=== PATIENT | female | born 1965 | race Caucasian/White ===

== ENCOUNTER 2016-12-20 15:47 | Emergency (ER) | payer BC ==
[2016-12-20 16:27] VITALS: BP 108/54
--- NOTE | 2016-12-20 16:36 | UC ---
Skin Complaint HPI - HPI Summary HPI Summary: Pt presents with c/o of abrasion to the top of right foot s/p cook pressure falling on top of right foot. Pt states that skin has become increasingly red and tender over the last 7 days with small amount of clear/yellow drainage - History of Current Complaint Chief Complaint: UCSkin Time Seen by Provider: 12/20/16 16:22 Stated Complaint: RIGHT FOOT COMPLAINT Hx Obtained From: Patient Hx Last Menstrual Period: "last month sometime." ?: No Onset/Duration: Gradual Onset, Lasting Days - 7 Skin Exposure Onset/Duration: Days Ago - 7 Timing: Constant Onset Severity: Mild Current Severity: Mild Location: Discrete - right top of foot Character: Redness, Painful Aggravating: Touch Associated Signs & Symptoms: Positive: Drainage, Tenderness - Allergy/Home Medications Allergies/Adverse Reactions: Allergies Allergy/AdvReac Type Severity Reaction Status Date / Time No Known Allergies Allergy Verified 12/20/16 16:27 Home Medications: Home Medications Ibuprofen TAB* [Advil TAB*] 200 mg PO Q6H PRN 12/20/16 [History Confirmed ] Review of Systems Constitutional: Negative Skin: Other - eryhtematous, peeling skin~ 3 cm diameter, scant amount erous drainage Eyes: Negative ENT: Negative Respiratory: Negative Cardiovascular: Negative Gastrointestinal: Negative Genitourinary: Negative Motor: Negative Neurovascular: Negative Musculoskeletal: Negative Neurological: Negative Psychological: Negative All Other Systems Reviewed And Are Negative: Yes PMH/Surg Hx/FS Hx/Imm Hx Previously Healthy: Yes - Surgical History Surgical History: Yes Surgery Procedure, Year, and Place: Tubal Ligation, 1991, [facility] - Family History Known Family History: Positive: Cardiac Disease - Social History Alcohol Use: Occasionally Substance Use Type: None Smoking Status (MU): Current Every Day Smoker Type: Cigarettes Amount Used/How Often: 1 PPD Have You Smoked in the Last Year: Yes When Did the Patient Quit Smoking/Using Tobacco: ~30 YRS - Immunization History Most Recent Influenza Vaccination: has not had Physical Exam Triage Information Reviewed: Yes Appearance: Well-Appearing Vital Signs: Initial Vital Signs Temp 98.9 F 12/20/16 16:20 Pulse 72 12/20/16 16:20 Resp 16 12/20/16 16:20 BP 108/54 12/20/16 16:20 Pulse Ox 96 12/20/16 16:20 Eye Exam: Normal ENT Exam: Normal Neck exam: Normal Respiratory Exam: Normal Cardiovascular Exam: Normal Musculoskeletal Exam: Normal Neurological Exam: Normal Psychological Exam: Normal Skin Exam: Other - irregular shaped abrasion,~ 3 cm in diameter with peeling skin, erythematous, scant amount of serous drainage. Course/Dx - Differential Diagnoses - Skin Complaint Differential Diagnoses: Cellulitis, MRSA - Diagnoses Provider Diagnoses: cellulitis right foot Discharge - Discharge Plan Condition: Stable Disposition: HOME Prescriptions: Cephalexin CAP* [Keflex 500 CAP*] 500 mg PO Q12H #14 cap Silver Sulfadiazine 1%* [SILVadine 1%*] 1 applic TOPICAL DAILY #1 tube Patient Education Materials: Cellulitis (ED) Referrals: Shu Orozco MD [Primary Care Provider] - If Needed
== END 2016-12-20 16:50 | disposition home or self-care (01) ==
LOC: UCCORT 15:47
DX: L03.115 Cellulitis of right lower limb (principal); F17.210 Nicotine dependence, cigarettes, uncomplicated
CPT/HCPCS: 99212; G0463